=== PATIENT | female | born 1995 | race African-American/Black ===

== ENCOUNTER 2017-04-10 17:54 | Emergency (ER) | payer OTHER ==
[2017-04-10 18:03] VITALS: BP 126/81; PULSE 81; TEMP 98.2; BMI 22.8
--- NOTE | 2017-04-10 18:24 | PDOC ---
History of Present Illness - General Chief Complaint: Pain Stated Complaint: ABD PAIN Time Seen by Provider: 04/10/17 18:05 History Source: Patient Exam Limitations: No Limitations - History of Present Illness Initial Comments: 04/10/17 18:30 CC: 3 day h/o abdominal pain Patient is a 21 y.o. female with no known PMH who presents to our facility today c/o a 3 day h/o abdominal pain and constipation. Patient states the pain is 10/10 diffuse and aching. Patient notes 2 episodes of yellow colored vomiting and denies any triggering or relieving factors. Patient states her LMP was 2 weeks previous and her last sexual activity was in January 2017. Timing/Duration: other (4 days) Severity: moderate Associated Symptoms: reports: nausea/vomiting Past History - Past Medical History Allergies/Adverse Reactions: Allergies Allergy/AdvReac Type Severity Reaction Status Date / Time No Known Allergies Allergy Verified 04/10/17 18:00 Other medical history: none - Psycho/Social/Smoking Cessation Hx Anxiety: No Suicidal Ideation: No Smoking History: Never smoked Have you smoked in the past 12 months: No Information on smoking cessation initiated: No Hx Alcohol Use: No Drug/Substance Use Hx: No Substance Use Type: Marijuana Review of Systems - Review of Systems ABD/GI: Yes: Constipated *Physical Exam - Vital Signs Last Vital Signs Temp Pulse Resp BP Pulse Ox 98.2 F 81 18 126/81 100 04/10/17 18:01 04/10/17 18:01 04/10/17 18:01 04/10/17 18:01 04/10/17 18:01 - Physical Exam Gastrointestinal/Abdominal: positive: Tenderness ED Treatment Course - LABORATORY CBC & Chemistry Diagram: 04/10/17 18:29 04/10/17 18:29 *DC/Admit/Observation/Transfer Diagnosis at time of Disposition: Constipation - Discharge Dispostion Disposition: HOME Condition at time of disposition: Improved Admit: No - Patient Instructions Printed Discharge Instructions: Appendicitis: What You Need to Know, DI for Constipation Additional Instructions: Patient is instructed to return to the hospital immediately if she has a fever, RLQ pain, nausea, chills or vomiting. - Attestations Physician Attestion: 04/10/17 20:35 I, Dr. Janett Polanco, attest that this document has been prepared under my direction and personally reviewed by me in its entirety. I further attest, that it accurately reflects all work, treatment, procedures and medical decision -making performed by me.
[2017-04-10 18:48] LABS: MCH 31.4 pg (25.7-33.7); MCHC 33.5 g/dl (32.0-36.0); MEAN CELL VOLUME 93.8 fl (80-96); MEAN PLT VOLUME 8.7 fl (7.5-11.1); PLATELET COUNT 276 K/MM3 (134-434); RDW 12.8 % (11.6-15.6); WHITE BLOOD COUNT 10.8 K/mm3 (4.0-10.0)
[2017-04-10 19:07] LABS: ANION GAP 8 (8-16); CALCIUM 9.7 mg/dL (8.5-10.1); CO2 28 mmol/L (21-32); CREATININE 1.3 mg/dL (0.55-1.02); GLUCOSE,RANDOM 80 mg/dL (74-106)
[2017-04-10] MEDS ORDERED: ACETAMINOPHEN 325 MG TABLET (FP) PO ONE (19:14)
[2017-04-10] MEDS ORDERED: ACETAMINOPHEN 325 MG TABLET (FP) ONE (19:25)
== END 2017-04-10 20:45 | disposition home or self-care (01) ==
LOC: JER 17:54
DX: K59.00 Constipation, unspecified (principal)
CPT/HCPCS: 36415; 74000-TC; 80048; 84703; 85027; 99281-25